=== PATIENT | female | born 1955 | race Caucasian/White ===

== ENCOUNTER → 2016-08-15 | Outpatient (CLI) | payer MEDICAID ==
--- NOTE | 2016-08-16 08:00 | MM ---
Reason for exam: screening (asymptomatic). Last mammogram was performed 1 year and 1 month ago. History: Patient is postmenopausal and history of other cancer. Taking estrogen for 1 year beginning at age 57. Physical Findings: A clinical breast exam by your physician is recommended on an annual basis and results should be correlated with mammographic findings. MG 3D Screening Mammo W/Cad Bilateral CC and MLO view(s) were taken. Prior study comparison: July 06, 2015, bilateral MG 3d screening mammo w/cad. May 03, 2014, bilateral MG diagnostic mammo w CAD CONSUELO. There are scattered fibroglandular densities. No significant changes when compared with prior studies. ASSESSMENT: Negative, BI-RAD 1 RECOMMENDATION: Routine screening mammogram of both breasts in 1 year.
== END | disposition home or self-care (01) ==
LOC: RADMAMWWP 06:52
PROVIDERS: ATTEND Obstetrics & Gynecology
DX: Z12.31 Encounter for screening mammogram for malignant neoplasm of breast (principal)
CPT/HCPCS: 77063; G0202

== ENCOUNTER → 2016-09-04 | Outpatient (CLI) | payer MEDICAID ==
[2016-09-04 07:55] LABS: Alkaline Phosphatase 47 U/L (38-126); Calcium 9.4 mg/dL (8.4-10.2); Non-African American GFR(MDRD) >60 (>60 ml/min/1.73 sqM); Phosphorous 4.2 mg/dL (2.5-4.5)
[2016-09-04 14:41] LABS: Cholesterol 210 mg/dL (<200); HDL Cholesterol 78 mg/dL (40-60); Triglycerides 51 mg/dL (<150)
== END | disposition home or self-care (01) ==
LOC: LABWHC1 07:03
PROVIDERS: ATTEND Internal Medicine Endocrinology, Diabetes & Metabolism
DX: I10 Essential (primary) hypertension (principal); M81.8 Other osteoporosis without current pathological fracture; N95.1 Menopausal and female climacteric states; R79.9 Abnormal finding of blood chemistry, unspecified; Z79.83 Long term (current) use of bisphosphonates; Z79.51 Long term (current) use of inhaled steroids; Z79.52 Long term (current) use of systemic steroids; Z87.310 Personal history of (healed) osteoporosis fracture
CPT/HCPCS: 36415; 80061; 82040; 82306; 82310; 82565; 83735; 83970; 84075; 84100; 84155

== ENCOUNTER → 2016-11-21 | Outpatient (CLI) | payer SELFPAY ==
--- NOTE | 2016-11-21 16:22 | CT ---
EXAMINATION TYPE: CT heart w calcium score DATE OF EXAM: 11/21/2016 3:58 PM COMPARISON: NONE HISTORY: Screening for cardiovascular disorder. 213.9 CT DLP: 44.80 mGycm Automated exposure control for dose reduction was used. CT CALCIUM SCORING Coronary calcium is a marker for plaque (fatty deposits) in a blood vessel or atherosclerosis (harden ing of the arteries). The presence and amount of calcium detected in a coronary artery by the CT sca n, indicates the presence and amount of atherosclerotic plaque. These calcium deposits appear years before the development of heart disease symptoms such as chest pain and shortness of breath. A calcium score is computed for each of the coronary arteries based upon the volume and density of th e calcium deposits. This can be referred to as your calcified plaque burden. It does not correspond directly to the percentage of narrowing in the artery but does correlate with the severity of the un derlying coronary atherosclerosis. PROCEDURE TECHNIQUE - Prospective Gating was used. Slice thickness: 3mm. Density threshold (HU): 130, Pixel threshold: 3, Algorithm: discrete. RESULTS Region: LM Calcium Score (Agatston): 0 Volume (mm3): 0 Mass (g): 0 Region: RCA Calcium Score (Agatston): 0 Volume (mm3): 0 Mass (g): 0 Region: LAD Calcium Score (Agatston): 0 Volume (mm3): 0 Mass (g): 0 Region: CX Calcium Score (Agatston): 0 Volume (mm3): 0 Mass (g): 0 Total: Calcium Score (Agatston): 0 Volume (mm3): 0 Mass (g): 0 TOTAL CALCIUM SCORE: 0 OTHER: The ascending thoracic aorta at the level of the main pulmonary artery measures 3.0 cm. The m ain pulmonary artery the bifurcation is 2.3 cm. There may be some atelectasis or infiltrate at the ca rdiophrenic angles bilaterally within the [id number]. IMPRESSION: Calcium Score: 0 Implication: No identifiable plaque. Risk of Coronary Artery Disease: Very low, generally less than 5%. Atelectasis or infiltrate at the cardiophrenic angles bilateral lungs within the [id number].
== END | disposition home or self-care (01) ==
LOC: RADXRMAIN 10:20
PROVIDERS: ATTEND Radiology Diagnostic Radiology
DX: Z13.6 Encounter for screening for cardiovascular disorders (principal)

== ENCOUNTER → 2017-07-16 | Outpatient (CLI) | payer MEDICAID ==
--- NOTE | 2017-07-16 17:20 | US ---
EXAMINATION TYPE: US renals and bladder DATE OF EXAM: 07/16/2017 COMPARISON: NONE CLINICAL HISTORY: N39.0 Recurrent UTI. Patient states having recurrent UTI's with negative cultures. EXAM MEASUREMENTS: Right Kidney: 11.4 x 5.0 x 4.9 cm Left Kidney: 10.4 x 5.1 x 5.2 cm Right Kidney: Prominent pyramids. Fullness right renal pelvis may be related to extrarenal pelvis. H ydronephrosis not excluded. Left Kidney: Scanned RLD and posterior due to overlying bowel gas. Prominent pyramids and dromedary hump seen. Bladder: distended, wnl as visualized Bilateral Jets seen No nephrolithiasis is seen. No masses are identified. The urinary bladder is anechoic. Bilateral ureteral jets are seen. IMPRESSION: 1. Fullness right renal pelvis may be related to extrarenal pelvis. Hydronephrosis not excluded.
== END ==
LOC: RADUSMAIN 15:02
PROVIDERS: ATTEND Surgery
DX: N39.0 Urinary tract infection, site not specified (principal)
CPT/HCPCS: 76770

== ENCOUNTER → 2017-07-16 | Outpatient (CLI) | payer MEDICAID ==
--- NOTE | 2017-07-16 22:10 | ECHOF ---
Referral Reason:I05.9Mitralvalve disorder MEASUREMENTS -------- HEIGHT: 162.6 cm WEIGHT: 57.6 kg BP: 184/93 RVIDd: 2.4 cm (< 3.3) IVSd: 1.2 cm (0.6 - 1.1) LVIDd: 3.9 cm (3.9 - 5.3) LVPWd: 1.1 cm (0.6 - 1.1) IVSs: 1.4 cm LVIDs: 2.7 cm LVPWs: 1.4 cm LAESV Index (A-L): 32.86 ml/m Ao Diam: 3.0 cm (2.0 - 3.7) AV Cusp: 1.9 cm (1.5 - 2.6) LA Diam: 2.6 cm (2.7 - 3.8) MV EXCURSION: 20.651 mm (> 18.000) MV EF SLOPE: 160 mm/s (70 - 150) EPSS: 0.5 cm MV E Peter: 0.77 m/s MV DecT: 235 ms MV A Peter: 0.93 m/s MV E/A Ratio: 0.83 FINDINGS -------- Sinus rhythm. This was a technically adequate study. The left ventricular size is normal. There is mild concentric left ventricular hypertrophy. Overa ll left ventricular systolic function is normal with, an EF between 55 - 60 %. The right ventricle is normal in size and function. LA is midly dilated 29-33ml/m2. The right atrium is normal in size. Aortic valve is trileaflet and is mildly thickened. There is no evidence of aortic regurgitation. There is no evidence of aortic stenosis. Mitral valve is thickened with myxomatous degeneration. The mitral valve leaflets are mildly thicke donna. There is trace mitral regurgitation. Trace tricuspid regurgitation present. Right ventricular systolic pressure is normal at < 35 mmHg. There is no evidence of pulmonary hypertension. Trace/mild (physiologic) pulmonic regurgitation. The aortic root size is normal. Normal inferior vena cava with normal inspiratory collapse consistent with estimated right atrial pre ssure of 5 mmHg. The pericardium is normal. There is no pericardial effusion. CONCLUSIONS -------- 1. Sinus rhythm. 2. This was a technically adequate study. 3. The left ventricular size is normal. 4. There is mild concentric left ventricular hypertrophy. 5. Overall left ventricular systolic function is normal with, an EF between 55 - 60 %. 6. LA is midly dilated 29-33ml/m2. 7. Aortic valve is trileaflet and is mildly thickened. 8. The mitral valve leaflets are mildly thickened. 9. There is trace mitral regurgitation. 10. Trace tricuspid regurgitation present. 11. Right ventricular systolic pressure is normal at < 35 mmHg. 12. There is no evidence of pulmonary hypertension. 13. Trace/mild (physiologic) pulmonic regurgitation. 14. The aortic root size is normal. 15. There is no pericardial effusion. STATION TENDER: David Bee RDCS
== END | disposition home or self-care (01) ==
LOC: RADECHMAIN 14:54
PROVIDERS: ATTEND Internal Medicine Interventional Cardiology
DX: I08.0 Rheumatic disorders of both mitral and aortic valves (principal)
CPT/HCPCS: 93306

== ENCOUNTER 2017-08-12 14:57 | Day surgery (SDC) | payer MEDICAID ==
[~2017-08-12 14:57] MED LIST: ALBUTEROL NEB (CONC) 2.5 MG/0.5 ML INHALATION ONE; ATROPINE SULFATE 0.4 MG/ML 1 ML VIAL IM ONE; LACTATED RINGERS 1,000 ML IV ONE; LIDOCAINE 2% (PF) 20 MG/ML 2 ML AMP INHALATION ONE
[2017-08-12] MEDS ORDERED: LACTATED RINGERS 1,000 ML IV ONE (15:12)
[2017-08-12 15:28] VITALS: TEMP 97.8
[2017-08-12] MEDS ORDERED: LIDOCAINE 1% 20 ML VIAL (10MG/ML) FOR IV START INTRADERMA ONE (15:29)
[2017-08-12] MEDS ORDERED: ATROPINE SULFATE 0.4 MG/ML 1 ML VIAL IM ONE (16:04)
[2017-08-12] MEDS ORDERED: ALBUTEROL NEBULIZED 2.5 MG/3 ML INHALATION STA (16:18)
[2017-08-12] MEDS ORDERED: MIDAZOLAM 2 MG/2 ML VIAL ONE (16:38)
[2017-08-12] MEDS ORDERED: PROPOFOL 10 MG/ML 20 ML VIAL IV ONE (16:38)
[2017-08-12] MEDS ORDERED: LIDOCAINE 1% INJ 10MG/ML (20 ML MDV) ONE (16:38)
[2017-08-12] MEDS ORDERED: KETAMINE 10 MG/ML 20 ML VIAL ONE (16:38)
[2017-08-12] MEDS ORDERED: LIDOCAINE 2% INJ 20 MG/ML INTRATRACH ONE (16:56)
[2017-08-12 17:29] VITALS: BP 160/90; PULSE 93; RESP 16
--- NOTE | 2017-08-12 17:45 | PCN ---
PROCEDURE NOTE PROCEDURE: Bronchoscopy, airway examination, therapeutic lavage, BAL right middle lobe. PREOPERATIVE DIAGNOSIS: Asthma exacerbation and retained secretions. POSTOPERATIVE DIAGNOSIS: Asthma exacerbation and retained secretions. There was informed consent. There was universal timeout. The INVESTMENT DIRECTOR provided unconscious sedation with general anesthesia. The patient's procedure took place in room #1. The procedure was done by Dr. Sheehan and Dr. Trivedi. PROCEDURE DESCRIPTION: After the patient was adequately sedated and being fully monitored, the bronchoscope was inserted through the right nostril. It passed through the right nasopharynx into the oropharynx. The hypopharynx was identified and topicalized. The hypopharyngeal structures, including anterior commissure, true cords, false cords, arytenoids, piriform sinuses, right and left valleculae and epiglottis, all appeared normal. After topicalization, the bronchoscope was pushed through the glottic opening into the trachea. Trachea was noted to have some secretions distally. The tracheal mucosa was somewhat friable. Trachea lesly was sharp. Right and left mainstem were topicalized. The right upper lobe and its 3 segments, right middle lobe and its 2 segments, the right lower lobe and its 5 segments, the left upper lobe proper and its 2 segments, the lingula and its 2 segments and the left lower lobe and its 4 segments all had similar findings of diffuse airways. I would say it was moderate to severe. There was mucosal friability. There was diffuse erythema and hyperemia. The mucosa bled easily. There were thick secretions noted throughout, particularly in the lower lobes. They were yellow-green in color. They were suctioned with some difficulty. After all the secretions were removed, and after the airways were inspected, the bronchoscope was wedged into the lower lobe. It was hard to get into the middle lobe because of the edema. The washings were primarily from the right middle lobe, right lower lobe area. They were pooled. Roughly 30 mL were collected. Next, the bronchoscope was taken back down over to the left lower lobe and the left lower lobe was flushed thoroughly. The patient tolerated the procedure well, although she did cough quite a bit. We did use topical lidocaine and systemic lidocaine for that. The patient otherwise was stable throughout the procedure. There were no immediate complications. The patient will be recovered. MMODL / IJN: [id number] /
[2017-08-12 19:05] LABS: Appearance,BF Cloudy; Color,BF Red; Nucleated Cells, Body Fluid 250 /uL; RBC, Body Fluid 23625 /uL
[2017-08-12 19:57] LABS: Mononuclear WBC,Body Fluid 44 %; Polynuclear WBC,Body Fluid 56 %; Total Cells Counted,Body Fluid 100
== END 2017-08-12 17:57 | disposition home or self-care (01) ==
LOC: ORWHC2ENDO 14:57
PROVIDERS: ATTEND Internal Medicine Critical Care Medicine
DX: J45.901 Unspecified asthma with (acute) exacerbation (principal); F41.9 Anxiety disorder, unspecified; G47.00 Insomnia, unspecified; L30.9 Dermatitis, unspecified; M81.0 Age-related osteoporosis without current pathological fracture; I10 Essential (primary) hypertension; Z79.3 Long term (current) use of hormonal contraceptives; Z79.51 Long term (current) use of inhaled steroids; Z79.52 Long term (current) use of systemic steroids; Z79.899 Other long term (current) drug therapy; Z91.041 Radiographic dye allergy status
CPT/HCPCS: 94640; 88108; 88305; 89050; 87252; 87070; 87205; 87116; 87102; 87206; 31645; 31624; J2001 ×3; J2250; J0461; J2704; 87077; 87186; 87496; 87498; 87502; 87529; 87634; 87798

== ENCOUNTER → 2017-08-29 | Outpatient (CLI) | payer MEDICAID ==
--- NOTE | 2017-09-03 07:53 | MM ---
Reason for exam: screening (asymptomatic). Last mammogram was performed 1 year ago. History: Patient is postmenopausal and history of other cancer. Taking estrogen for 5 years beginning at age 57. Taking progesterone for 5 years beginning at age 53. Physical Findings: A clinical breast exam by your physician is recommended on an annual basis and results should be correlated with mammographic findings. MG 3D Screening Mammo W/Cad Bilateral CC and MLO view(s) were taken. Prior study comparison: August 15, 2016, bilateral MG 3d screening mammo w/cad. July 06, 2015, bilateral MG 3d screening mammo w/cad. The breast tissue is heterogeneously dense. This may lower the sensitivity of mammography. No suspicious abnormality in the right breast. Anterior depth lateral left breast asymmetry. ASSESSMENT: Incomplete: need additional imaging evaluation, BI-RAD 0 RECOMMENDATION: Special view mammogram of the left breast. (also work up patients left palpable on diagnostic exam) If lesion persists on supplemental views, image directed ultrasound is recommended. [facility] will attempt to contact patient to return for supplemental views and ultrasound if indicated.
== END | disposition home or self-care (01) ==
LOC: RADMAMWWP 13:28
PROVIDERS: ATTEND Obstetrics & Gynecology
DX: Z12.31 Encounter for screening mammogram for malignant neoplasm of breast (principal)
CPT/HCPCS: 77063; 77067

== ENCOUNTER → 2017-09-04 | Outpatient (CLI) | payer MEDICAID ==
--- NOTE | 2017-09-04 11:37 | MM ---
Reason for exam: additional evaluation requested from abnormal screening. Last mammogram was performed less than 1 month ago. History: Patient is postmenopausal and history of other cancer. Taking estrogen for 5 years beginning at age 57. Taking progesterone for 5 years beginning at age 53. Physical Findings: Nurse Summary: 1cm nodule in the left breast (nurse dw). MG 3D Work Up W/Cad LT ML and spot compression CC view(s) were taken of the left breast. Prior study comparison: August 29, 2017, bilateral MG 3d screening mammo w/cad. August 15, 2016, bilateral MG 3d screening mammo w/cad. There are scattered fibroglandular densities. No distinct lesion persists. These results were verbally communicated with the patient and result sheet given to the patient on 09/04/17. ASSESSMENT: Incomplete: need additional imaging evaluation, BI-RAD 0 RECOMMENDATION: Ultrasound of the left breast. (palpable)
--- NOTE | 2017-09-04 11:38 | USB ---
Reason for exam: additional evaluation requested from abnormal screening. History: Patient is postmenopausal and history of other cancer. Taking estrogen for 5 years beginning at age 57. Taking progesterone for 5 years beginning at age 53. US Breast Workup Limited LT Left breast ultrasound demonstrates no cystic or solid lesion seen. These results were verbally communicated with the patient and result sheet given to the patient on 09/04/17. ASSESSMENT: Negative, BI-RAD 1 RECOMMENDATION: Return to routine screening mammogram schedule for both breasts. Manage patient on a clinical basis.
== END | disposition home or self-care (01) ==
LOC: RADMAMWWP 06:54
PROVIDERS: ATTEND Obstetrics & Gynecology
DX: R92.8 Other abnormal and inconclusive findings on diagnostic imaging of breast (principal)
CPT/HCPCS: 77065; 76642; G0279

== ENCOUNTER → 2017-09-09 | Outpatient (CLI) | payer MEDICAID ==
[2017-09-09 10:44] LABS: Basophils % (A) 0 %; Eosinophils % (A) 0 %; HGB 13.7 gm/dL (11.4-16.0); Lymphocytes # (A) 1.3 k/uL (1.0-4.8); Lymphocytes % (A) 12 %; MCH 31.5 pg (25.0-35.0); MCHC 31.7 g/dL (31.0-37.0); MCV 99.3 fL (80.0-100.0); Mean Platelet Volume 6.6; Monocytes # (A) 0.5 k/uL (0-1.0); Monocytes % (A) 5 %; Neutrophils % (A) 81 %; Platelet Count 313 k/uL (150-450); RBC 4.33 m/uL (3.80-5.40); RDW 12.7 % (11.5-15.5); WBC 11.1 k/uL (3.8-10.6)
[2017-09-09 11:01] LABS: Total Eosinophil Count 33 #EOS/uL (150-300)
[2017-09-09 11:07] LABS: Anion Gap 12 mmol/L; Blood Urea Nitrogen 16 mg/dL (7-17); Calcium 9.7 mg/dL (8.4-10.2); Carbon Dioxide 26 mmol/L (22-30); Chloride 102 mmol/L (98-107); Glucose 118 mg/dL (74-99); Phosphorus 3.5 mg/dL (2.5-4.5); Potassium 3.8 mmol/L (3.5-5.1); Sodium 140 mmol/L (137-145)
== END | disposition home or self-care (01) ==
LOC: LABWHC1 10:07
PROVIDERS: ATTEND Internal Medicine Infectious Disease
DX: L97.929 Non-pressure chronic ulcer of unspecified part of left lower leg with unspecified severity (principal); J45.909 Unspecified asthma, uncomplicated
CPT/HCPCS: 36415; 80048; 82533; 83735; 84100; 85008; 85025

== ENCOUNTER → 2017-10-11 | Outpatient (CLI) | payer MEDICAID ==
[2017-10-11 09:28] LABS: Basophils # (A) 0.1 k/uL (0-0.2); Basophils % (A) 1 %; Eosinophils # (A) 0.2 k/uL (0-0.7); Eosinophils % (A) 2 %; HCT 42.3 % (34.0-46.0); HGB 14.3 gm/dL (11.4-16.0); Lymphocytes # (A) 2.1 k/uL (1.0-4.8); Lymphocytes % (A) 26 %; MCH 32.9 pg (25.0-35.0); MCHC 33.8 g/dL (31.0-37.0); MCV 97.3 fL (80.0-100.0); Mean Platelet Volume 7.2; Monocytes # (A) 0.5 k/uL (0-1.0); Monocytes % (A) 6 %; Neutrophils # (A) 5.2 k/uL (1.3-7.7); Neutrophils % (A) 62 %; Platelet Count 351 k/uL (150-450); RBC 4.35 m/uL (3.80-5.40); RDW 13.3 % (11.5-15.5); WBC 8.3 k/uL (3.8-10.6)
[2017-10-11 11:26] LABS: ALT 28 U/L (9-52); AST 20 U/L (14-36); Alkaline Phosphatase 39 U/L (38-126); Anion Gap 9 mmol/L; Blood Urea Nitrogen 14 mg/dL (7-17); Carbon Dioxide 30 mmol/L (22-30); Chloride 102 mmol/L (98-107); Cholesterol 216 mg/dL (<200); Glucose 87 mg/dL (74-99); HDL Cholesterol 81 mg/dL (40-60); LDL Cholesterol,Calculated 122 mg/dL (0-99); Potassium 4.1 mmol/L (3.5-5.1); Sodium 141 mmol/L (137-145); Total Bilirubin 0.4 mg/dL (0.2-1.3); Total Protein 6.8 g/dL (6.3-8.2); Triglycerides 66 mg/dL (<150)
[2017-10-11 11:40] LABS: T4, Free (Free Thyroxine) 1.06 ng/dL (0.78-2.19)
[2017-10-11 20:40] LABS: Hemoglobin A1C 5.3 % (4.0-6.0)
== END | disposition home or self-care (01) ==
LOC: LABWHC1 08:24
PROVIDERS: ATTEND Internal Medicine Critical Care Medicine
DX: I10 Essential (primary) hypertension (principal); J45.909 Unspecified asthma, uncomplicated; E27.40 Unspecified adrenocortical insufficiency
CPT/HCPCS: 36415; 80053; 80061; 82306; 82533; 83036; 84439; 84443; 85025

== ENCOUNTER → 2017-10-29 | Outpatient (CLI) | payer MEDICAID ==
[~2017-10-29] MED LIST changes: -ALBUTEROL NEB (CONC) 2.5 MG/0.5 ML INHALATION ONE; -ATROPINE SULFATE 0.4 MG/ML 1 ML VIAL IM ONE; +COSYNTROPIN 0.25 MG VIAL IM ONE; -LACTATED RINGERS 1,000 ML IV ONE; -LIDOCAINE 2% (PF) 20 MG/ML 2 ML AMP INHALATION ONE
[2017-10-29 08:15] VITALS: BP 138/67; PULSE 81; RESP 16; TEMP 97.7
[2017-10-29 19:13] LABS: Vitamin D 25 Hydroxy 51.8 ng/mL (30.0-100.0)
[2017-10-30 06:11] LABS: ACTH <5.00 pg/mL (0.00-45.99)
== END | disposition home or self-care (01) ==
LOC: PROCWHC3 07:37
PROVIDERS: ATTEND Internal Medicine Endocrinology, Diabetes & Metabolism
DX: E27.3 Drug-induced adrenocortical insufficiency (principal); E55.9 Vitamin D deficiency, unspecified
CPT/HCPCS: 82533; 82024; 82306; 36415; J0834

== ENCOUNTER → 2017-11-10 | Outpatient (CLI) | payer MEDICAID ==
[2017-11-10 11:19] LABS: Parathyroid Hormone Intact 54.2 pg/mL (14.0-72.0)
== END | disposition home or self-care (01) ==
LOC: LABWHC1 07:09
PROVIDERS: ATTEND Internal Medicine Endocrinology, Diabetes & Metabolism
DX: M81.8 Other osteoporosis without current pathological fracture (principal); N95.1 Menopausal and female climacteric states; Z79.51 Long term (current) use of inhaled steroids; Z79.52 Long term (current) use of systemic steroids
CPT/HCPCS: 36415; 82670; 83970

== ENCOUNTER → 2017-12-30 | Outpatient (CLI) | payer MEDICAID | END | disposition home or self-care (01) | LOC: LABWHC1 07:01 | PROVIDERS: ATTEND Internal Medicine Endocrinology, Diabetes & Metabolism | DX: E27.3 Drug-induced adrenocortical insufficiency (principal) | CPT/HCPCS: 36415; 82024 ==

== ENCOUNTER → 2018-01-27 | Outpatient (CLI) | payer MEDICAID ==
--- NOTE | 2018-01-28 17:46 | MR ---
EXAMINATION TYPE: MR foot RT wo con DATE OF EXAM: 01/27/2018 COMPARISON: None available HISTORY: 62-year-old female Right Foot Pain x 2 weeks TECHNIQUE: Multiplanar, multisequence images of the right foot were obtained without IV contrast. FINDINGS: Incidental type I accessory navicular. Small anterior ankle joint effusion. Achilles tendon is smoothly delineated. Origin of the plantar fa scia intact. No abnormal replacement of the normal fat signal in sinus tarsi. Lisfranc ligament appe ars intact. There is hallux valgus deformity with bunion formation and moderate degenerative change at the first MTP joint with subchondral cystic change and marginal spurring. Some additional degenerative change i s noted at the first metatarsal sesamoid joint. Hammertoes are present. Some degenerative dorsal spurring at the talonavicular joint and mild degenerative change scattered t hroughout the midfoot TMT joints as well. There is some focal marrow edema and surrounding soft tissue edema along the proximal aspect of the f ifth metatarsal distal to the level of the fourth-fifth intermetatarsal joint, refer to axial T2 FS i mage 11, coronal T2 FS image 25, and sagittal images 15. No discrete fracture or otherwise any abnormal marrow edema seen. IMPRESSION: 1. Findings suspicious for stress reaction versus small incomplete stress fracture at the base of the fifth metatarsal near the metadiaphyseal junction. 2. 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 3. Hammer toes and additional scattered mild osteoarthritic changes within the midfoot.
== END | disposition home or self-care (01) ==
LOC: RADMRIMAIN 16:42
PROVIDERS: ATTEND Orthopaedic Surgery
DX: M20.11 Hallux valgus (acquired), right foot (principal); M21.611 Bunion of right foot; M19.071 Primary osteoarthritis, right ankle and foot; M20.41 Other hammer toe(s) (acquired), right foot

== ENCOUNTER → 2018-02-05 | Outpatient (CLI) | payer MEDICAID ==
[2018-02-05 15:47] LABS: Albumin 4.4 g/dL (3.5-5.0); Alkaline Phosphatase 34 U/L (38-126); Phosphorus 4.2 mg/dL (2.5-4.5); Total Protein 6.9 g/dL (6.3-8.2)
[2018-02-05 18:50] LABS: Vitamin D 25 Hydroxy 101.4 ng/mL (30.0-100.0)
[2018-02-05 19:07] LABS: Parathyroid Hormone Intact 17.5 pg/mL (14.0-72.0)
== END | disposition home or self-care (01) ==
LOC: LABWHC1 15:08
PROVIDERS: ATTEND Internal Medicine Endocrinology, Diabetes & Metabolism
DX: M81.8 Other osteoporosis without current pathological fracture (principal); E55.9 Vitamin D deficiency, unspecified; Z92.241 Personal history of systemic steroid therapy
CPT/HCPCS: 36415; 82040; 82306; 82310; 82565; 83735; 83970; 84075; 84100; 84155

== ENCOUNTER → 2018-05-06 | Outpatient (CLI) | payer MEDICAID | END | disposition home or self-care (01) | LOC: LABWHC1 07:31 | PROVIDERS: ATTEND Physician Assistant Medical | DX: L20.89 Other atopic dermatitis (principal) | CPT/HCPCS: 36415; 86038 ==

== ENCOUNTER → 2018-07-03 | Outpatient (CLI) | payer MEDICAID | END | disposition home or self-care (01) | LOC: LABWHC1 09:38 | PROVIDERS: ATTEND Internal Medicine Endocrinology, Diabetes & Metabolism | DX: E27.3 Drug-induced adrenocortical insufficiency (principal) | CPT/HCPCS: 36415; 82024; 82533 ==

== ENCOUNTER → 2018-09-11 | Outpatient (CLI) | payer MEDICAID ==
--- NOTE | 2018-09-15 08:51 | MM ---
Reason for exam: screening (asymptomatic). Last mammogram was performed 1 year ago. History: Patient is postmenopausal and has history of other cancer at age 53. Taking estrogen for 5 years beginning at age 57. Taking progesterone for 5 years beginning at age 53. Physical Findings: A clinical breast exam by your physician is recommended on an annual basis and results should be correlated with mammographic findings. MG 3D Screening Mammo W/Cad Bilateral CC and MLO view(s) were taken. Prior study comparison: September 04, 2017, left breast MG 3d work up w/cad LT. August 15, 2016, bilateral MG 3d screening mammo w/cad. July 06, 2015, bilateral MG 3d screening mammo w/cad. No significant changes when compared with prior studies. ASSESSMENT: Benign, BI-RAD 2 RECOMMENDATION: Routine screening mammogram of both breasts in 1 year. Manage patient on a clinical basis.
== END ==
LOC: RADMAMWWP 06:51
PROVIDERS: ATTEND Obstetrics & Gynecology
DX: Z12.31 Encounter for screening mammogram for malignant neoplasm of breast (principal)
CPT/HCPCS: 77063; 77067

== ENCOUNTER → 2018-10-29 | Outpatient (CLI) | payer MEDICAID ==
[2018-10-29 11:47] LABS: Parathyroid Hormone Intact 24.9 pg/mL (14.0-72.0)
[2018-10-29 11:52] LABS: Albumin 4.3 g/dL (3.80-4.90); Albumin/Globulin Ratio 2.05 (1.60-3.17); Anion Gap 6.9 mmol/L (4.00-12.00); Calcium 9.8 mg/dL (8.7-10.3); Carbon Dioxide 29.1 mmol/L (21.6-31.8); Globulin 2.1 g/dL (1.6-3.3); Magnesium 1.9 mg/dL (1.5-2.4); Phosphorus 4.4 mg/dL (2.4-5.1); Potassium 4.2 mmol/L (3.5-5.5); Total Bilirubin 0.5 mg/dL (0.3-1.2); Total Protein 6.4 g/dL (6.2-8.2)
[2018-10-29 11:53] LABS: Vitamin D 25 Hydroxy 73.1 ng/mL (30.0-100.0)
== END ==
LOC: LABWHC1 07:27
PROVIDERS: ATTEND Internal Medicine Endocrinology, Diabetes & Metabolism
DX: E27.3 Drug-induced adrenocortical insufficiency (principal); M81.8 Other osteoporosis without current pathological fracture; N95.1 Menopausal and female climacteric states; Z79.83 Long term (current) use of bisphosphonates; Z71.9 Counseling, unspecified; Z92.241 Personal history of systemic steroid therapy
CPT/HCPCS: 36415; 80053; 82024; 82306; 82533; 83735; 83970; 84100

== ENCOUNTER → 2018-10-30 | Outpatient (CLI) | payer MEDICAID | END | disposition home or self-care (01) | LOC: LABWHC1 16:13 | PROVIDERS: ATTEND Internal Medicine Endocrinology, Diabetes & Metabolism | DX: Z53.9 Procedure and treatment not carried out, unspecified reason (principal) ==

== ENCOUNTER → 2018-11-04 | Outpatient (CLI) | payer MEDICAID | LOC: LABWHC1 14:27 | PROVIDERS: ATTEND Internal Medicine Endocrinology, Diabetes & Metabolism | DX: E27.3 Drug-induced adrenocortical insufficiency (principal) | CPT/HCPCS: 36415; 82024 ==

== ENCOUNTER → 2018-11-20 | Outpatient (CLI) | payer MEDICAID | LOC: LABWHC1 06:39 | PROVIDERS: ATTEND Internal Medicine Endocrinology, Diabetes & Metabolism | DX: E27.3 Drug-induced adrenocortical insufficiency (principal); E55.9 Vitamin D deficiency, unspecified | CPT/HCPCS: 36415; 82533 ==

== ENCOUNTER → 2019-04-01 | Outpatient (CLI) | payer MEDICAID, OTHER ==
[2019-04-01 12:03] LABS: African American GFR (CKD) 108.4 (60.0-200.0); Albumin 4.3 g/dL (3.80-4.90); Calcium 9.9 mg/dL (8.7-10.3); Magnesium 1.8 mg/dL (1.5-2.4); Total Protein 6.5 g/dL (6.2-8.2)
[2019-04-01 12:10] LABS: Vitamin D 25 Hydroxy 43.4 ng/mL (30.0-100.0)
== END | disposition home or self-care (01) ==
LOC: LABWHC1 07:14
PROVIDERS: ATTEND Internal Medicine Endocrinology, Diabetes & Metabolism
DX: E27.3 Drug-induced adrenocortical insufficiency (principal); E55.9 Vitamin D deficiency, unspecified
CPT/HCPCS: 36415; 82040; 82306; 82310; 82533; 82565; 82670; 83735; 83970; 84075; 84100; 84155

== ENCOUNTER → 2019-05-19 | Outpatient (CLI) | payer MEDICAID, OTHER ==
[2019-05-19 15:14] LABS: Basophils # (A) 0.1 k/uL (0-0.2); Basophils % (A) 1 %; Eosinophils # (A) 0.2 k/uL (0-0.7); Eosinophils % (A) 2 %; HCT 39.6 % (34.0-46.0); HGB 13.1 gm/dL (11.4-16.0); Lymphocytes # (A) 1.2 k/uL (1.0-4.8); Lymphocytes % (A) 14 %; MCH 33.2 pg (25.0-35.0); MCHC 33.1 g/dL (31.0-37.0); MCV 100.1 fL (80.0-100.0); Mean Platelet Volume 6.6; Monocytes # (A) 0.5 k/uL (0-1.0); Monocytes % (A) 6 %; Neutrophils # (A) 6.1 k/uL (1.3-7.7); Neutrophils % (A) 74 %; Platelet Count 334 k/uL (150-450); RBC 3.96 m/uL (3.80-5.40); RDW 12.1 % (11.5-15.5); WBC 8.2 k/uL (3.8-10.6)
[2019-05-19 15:57] LABS: Total Eosinophil Count 156 #EOS/uL (150-300)
== END ==
LOC: LABWHC1 14:07
PROVIDERS: ATTEND Internal Medicine Critical Care Medicine
DX: J45.909 Unspecified asthma, uncomplicated (principal)
CPT/HCPCS: 36415; 82785; 85008; 85025

== ENCOUNTER 2019-11-03 16:00 | Emergency (ER) | payer MEDICAID, OTHER ==
[2019-11-03] MEDS ORDERED: SODIUM CHLORIDE 0.9% 500 ML 500 ML IV ONE (16:01)
[2019-11-03 16:07] LABS: Glucose,Whole Blood 127 mg/dL (75-99)
[2019-11-03 16:08] VITALS: RESP 18; TEMP 97.5
[2019-11-03 16:17] LABS: HCT 41.9 % (34.0-46.0); HGB 13.8 gm/dL (11.4-16.0); MCH 31.7 pg (25.0-35.0); MCHC 32.8 g/dL (31.0-37.0); MCV 96.6 fL (80.0-100.0); Mean Platelet Volume 8.5; Platelet Count 315 k/uL (150-450); RBC 4.34 m/uL (3.80-5.40); RDW 11.7 % (11.5-15.5); WBC 10.6 k/uL (3.8-10.6)
[2019-11-03] MEDS ORDERED: ONDANSETRON 4 MG/2 ML VIAL IVP STA (16:26)
[2019-11-03 16:28] LABS: ALT 21 U/L (4-34); AST 30 U/L (14-36); Acetaminophen <10.0 ug/mL; African American GFR (CKD) >90 (>60 ml/min/1.73 sqM); Albumin 4.6 g/dL (3.5-5.0); Alkaline Phosphatase 52 U/L (38-126); Anion Gap 15 mmol/L; Blood Urea Nitrogen 12 mg/dL (7-17); Calcium 9.4 mg/dL (8.4-10.2); Carbon Dioxide 19 mmol/L (22-30); Chloride 104 mmol/L (98-107); Creatine Kinase 108 U/L (30-135); Glucose 128 mg/dL (74-99); Magnesium 2.1 mg/dL (1.6-2.3); Non-African American GFR(CKD) >90 (>60 ml/min/1.73 sqM); Potassium 3.3 mmol/L (3.5-5.1); Sodium 138 mmol/L (137-145); Total Bilirubin 0.3 mg/dL (0.2-1.3); Total Protein 7.5 g/dL (6.3-8.2)
[2019-11-03 16:31] LABS: Alcohol 288 mg/dL
--- NOTE | 2019-11-03 16:35 | CT ---
EXAMINATION TYPE: CT brain wo con DATE OF EXAM: 11/03/2019 COMPARISON: 12/18/2010 HISTORY: 64-year-old female confusion, altered mental status TECHNIQUE: Examination was done in axial plane without intravenous contrast. Coronal and sagittal r econstructions performed. CT DLP: 1125.4 mGycm Automated exposure control for dose reduction was used. FINDINGS: There is no evidence of acute intracranial hemorrhage, acute ischemic changes, mass, mass-effect, or extra-axial fluid collection. There is no effacement of cerebral sulci or basal subarachnoid cister ns. There is no hydrocephalus. There is no midline shift. Nielsen-white matter distinction is preserv ed. Mild periventricular white matter hypodensities likely relate to changes of chronic small vessel isch emic disease. Very mild bifrontal atrophy, age related change. Paranasal sinuses and mastoid air cells are well pneumatized. Orbits and globes are intact. Leftward nasal septal deviation. IMPRESSION: Mild periventricular changes of chronic small vessel ischemic disease. No acute intracranial abnormal ity seen. If symptoms warrant, follow-up MRI can be considered.
[2019-11-03 16:41] LABS: INR 0.9 (<1.2); Prothrombin Time 9.6 sec (9.0-12.0)
--- NOTE | 2019-11-03 16:46 | XR ---
EXAMINATION TYPE: XR chest 1V portable DATE OF EXAM: 11/03/2019 Comparison: 06/06/2016 Clinical History: 64-year-old female confusion, altered mental status Findings: Heart upper limits of normal in size. Aorta and pulmonary vasculature within normal limits. Mild inte rstitial prominence is unchanged. There is new focal patchy opacity along the left heart margin withi n the inferior lingula. No pleural effusion. Impression: Some focal inferior lingular opacity could represent atelectasis or an early developing pneumonia.
[2019-11-03] MEDS ORDERED: SODIUM CHLORIDE 0.9% 1,000 ML IV ONE (16:58)
--- NOTE | 2019-11-03 16:59 | ED ---
General Adult HPI - General Chief complaint: Altered Mental Status Stated complaint: Altered Mental Time Seen by Provider: 11/03/19 16:01 Source: family, EMS, RN notes reviewed, old records reviewed Mode of arrival: EMS Limitations: altered mental status, physical limitation - History of Present Illness Initial comments: 64-year-old female presenting for evaluation of altered mental status. Patient had been found in her yard, she had lost consciousness. She had had one episode of vomiting and was confused. EMS transported as priority 1. There was a smell of alcohol on the patient. Patient was unable to give any history at the time of arrival. Family at bedside stating there was no concern for illicit drug use. No history of TIA or CVA. Patient had episode of vomiting and urinary incontinence. History is that the patient is normally healthy and was in her usual state of health just prior to this episode. - Related Data Home Medications Medication Instructions Recorded Confirmed Montelukast [Singulair] 10 mg PO HS 01/19/14 11/03/19 Losartan/Hydrochlorothiazide 1 tab PO DAILY 10/29/17 11/03/19 [Losartan-Hctz 100-25 mg Tab] Omalizumab [Xolair] 300 mg SQ Q30D 07/05/19 11/03/19 Albuterol Nebulized [Ventolin 2.5 mg INHALATION RT-QID PRN 11/03/19 11/03/19 Nebulized] Budesonide/Formoterol Fumarate 2 puff INHALATION RT-BID 11/03/19 11/03/19 [Symbicort 160-4.5 Mcg Inhaler] Clobetasol Propionate [Temovate 1 applic TOPICAL BID 11/03/19 11/03/19 0.05% Oint] Estradiol/Norethindrone Acet 1 tab PO DAILY 11/03/19 11/03/19 [Lopreeza 1 mg-0.5 mg Tablet] Allergies Allergy/AdvReac Type Severity Reaction Status Date / Time iodine Allergy Swelling Verified 11/03/19 16:01 Review of Systems ROS Statement: Those systems with pertinent positive or pertinent negative responses have been documented in the HPI. ROS Other: All systems not noted in ROS Statement are negative. Past Medical History Past Medical History: Asthma, Cancer, Eye Disorder, Hypertension, Skin Disorder Additional Past Medical History / Comment(s): HEART MURMUR. RETINAL DISORDER. ECZEMA. SKI History of Any Multi-Drug Resistant Organisms: None Reported Additional Past Surgical History / Comment(s): BILATERAL CATARACTS. Colonoscopies,bronchoscopy. Left metatarsal stress fracture. Past Anesthesia/Blood Transfusion Reactions: No Reported Reaction, Motion S ickness Past Psychological History: No Psychological Hx Reported Smoking Status: Former smoker Past Alcohol Use History: Occasional Past Drug Use History: None Reported - Past Family History Father Family Medical History: Cancer Mother Family Medical History: Cancer General Exam Limitations: altered mental status, physical limitation General appearance: appears intoxicated, lethargic Head exam: Present: atraumatic, normocephalic Eye exam: Present: normal appearance, PERRL ENT exam: Present: mucous membranes dry Neck exam: Present: normal inspection. Absent: tenderness, meningismus Respiratory exam: Present: normal lung sounds bilaterally. Absent: respiratory distress, wheezes Cardiovascular Exam: Present: regular rate, normal rhythm GI/Abdominal exam: Present: soft. Absent: distended, tenderness, guarding, rebound Extremities exam: Present: normal inspection, normal capillary refill. Absent: pedal edema Neurological exam: Present: alert. Absent: motor sensory deficit (No focal findings, moving all extremities symmetrically) Psychiatric exam: Present: normal affect, normal mood Skin exam: Present: warm, dry, intact. Absent: cyanosis, diaphoretic Course Vital Signs 11/03/19 11/03/19 11/03/19 16:01 16:16 16:31 Temperature 97.5 F L Pulse Rate 76 66 79 Respiratory 18 18 18 Rate Blood Pressure 105/64 105/66 111/53 O2 Sat by Pulse 93 L 97 95 Oximetry 11/03/19 11/03/19 17:15 19:21 Temperature 97.5 F L Pulse Rate 60 76 Respiratory 18 18 Rate Blood Pressure 95/49 105/90 O2 Sat by Pulse 95 96 Oximetry EKG Findings - EKG Comments: EKG Findings:: EKG: Normal sinus rhythm, left atrial enlargement, incomplete right bundle, rate of 72, WV interval 142, QRS duration 106, QTC [address] segment elevation Medical Decision Making - Medical Decision Making 64-year-old female presenting with acute confusion and altered mental status. EMS reports a smell of alcohol. I did initiate workup in the emergency department which includes head CT which was negative for intracranial hemorrhage or mass effect, showing some chronic ischemic changes. She has chest x-ray which is negative for any acute cardiopulmonary disease. CBC is normal. Venous blood gas shows normal pH is 7.39. Mild lactic acidosis of 3.0. Electrolytes showing a potassium 3.3 which is replaced and a bicarb of 19 which is on the low side. Alcohol level significantly elevated 288. Patient observed in the emergency department with return to normal mental status, she does admit to drinking beer. She denies any other complaints time my reevaluation. She is able to eat and drink in the emergency department. She is ambulatory. She is not driving and has a ride. - Lab Data Result diagrams: 11/03/19 16:05 11/03/19 16:05 Lab Results 11/03/19 11/03/19 11/03/19 Range/Units 16:05 16:05 16:05 WBC 10.6 (3.8-10.6) k/uL RBC 4.34 (3.80-5.40) m/uL Hgb 13.8 (11.4-16.0) gm/dL Hct 41.9 (34.0-46.0) % MCV 96.6 (80.0-100.0) fL MCH 31.7 (25.0-35.0) pg MCHC 32.8 (31.0-37.0) g/dL RDW 11.7 (11.5-15.5) % Plt Count 315 (150-450) k/uL Neutrophils % (Manual) 55 % Lymphocytes % (Manual) 41 % Monocytes % (Manual) 3 % Basophils % (Manual) 1 % Neutrophils # (Manual) 5.83 (1.3-7.7) k/uL Lymphocytes # (Manual) 4.35 (1.0-4.8) k/uL Monocytes # (Manual) 0.32 (0-1.0) k/uL Basophils # (Manual) 0.11 (0-0.2) k/uL Nucleated RBCs 0 (0-0) /100 WBC Manual Slide Review Performed PT 9.6 (9.0-12.0) sec INR 0.9 (<1.2) APTT 18.0 L (22.0-30.0) sec VBG pH (7.31-7.41) VBG pCO2 (37-51) mmHg VBG HCO3 (24-28) mmol/L Sodium (137-145) mmol/L Potassium (3.5-5.1) mmol/L Chloride (98-107) mmol/L Carbon Dioxide (22-30) mmol/L Anion Gap mmol/L BUN (7-17) mg/dL Creatinine (0.52-1.04) mg/dL Est GFR (CKD-EPI)AfAm (>60 ml/min/1.73 sqM) Est GFR (CKD-EPI)NonAf (>60 ml/min/1.73 sqM) Glucose (74-99) mg/dL POC Glucose (mg/dL) 127 H (75-99) mg/dL POC Glu [employer] ID Maryan Davidson Lactic Ac Sepsis Rflx Plasma Lactic Acid Scot (0.7-2.0) mmol/L Calcium (8.4-10.2) mg/dL Magnesium (1.6-2.3) mg/dL Total Bilirubin (0.2-1.3) mg/dL AST (14-36) U/L ALT (4-34) U/L Alkaline Phosphatase (38-126) U/L Creatine Kinase (30-135) U/L Troponin I (0.000-0.034) ng/mL Total Protein (6.3-8.2) g/dL Albumin (3.5-5.0) g/dL Urine Color Urine Appearance (Clear) Urine pH (5.0-8.0) Ur Specific [place] (1.001-1.035) Urine Protein (Negative) Urine Glucose (UA) (Negative) Urine Ketones (Negative) Urine Blood (Negative) Urine Nitrite (Negative) Urine Bilirubin (Negative) Urine Urobilinogen (<2.0) mg/dL Ur Leukocyte Esterase (Negative) Urine Opiates Screen (NotDetected) Ur Oxycodone Screen (NotDetected) Urine Methadone Screen (NotDetected) Ur Propoxyphene Screen (NotDetected) Acetaminophen ug/mL Ur Barbiturates Screen (NotDetected) U Tricyclic Antidepress (NotDetected) Ur Phencyclidine Scrn (NotDetected) Ur Amphetamines Screen (NotDetected) U Methamphetamines Scrn (NotDetected) U Benzodiazepines Scrn (NotDetected) Urine Cocaine Screen (NotDetected) U Marijuana (THC) Screen (NotDetected) Serum Alcohol mg/dL 11/03/19 11/03/19 11/03/19 Range/Units 16:05 16:05 16:05 WBC (3.8-10.6) k/uL RBC (3.80-5.40) m/uL Hgb (11.4-16.0) gm/dL Hct (34.0-46.0) % MCV (80.0-100.0) fL MCH (25.0-35.0) pg MCHC (31.0-37.0) g/dL RDW (11.5-15.5) % Plt Count (150-450) k/uL Neutrophils % (Manual) % Lymphocytes % (Manual) % Monocytes % (Manual) % Basophils % (Manual) % Neutrophils # (Manual) (1.3-7.7) k/uL Lymphocytes # (Manual) (1.0-4.8) k/uL Monocytes # (Manual) (0-1.0) k/uL Basophils # (Manual) (0-0.2) k/uL Nucleated RBCs (0-0) /100 WBC Manual Slide Review PT (9.0-12.0) sec INR (<1.2) APTT (22.0-30.0) sec VBG pH (7.31-7.41) VBG pCO2 (37-51) mmHg VBG HCO3 (24-28) mmol/L Sodium 138 (137-145) mmol/L Potassium 3.3 L (3.5-5.1) mmol/L Chloride 104 (98-107) mmol/L Carbon Dioxide 19 L (22-30) mmol/L Anion Gap 15 mmol/L BUN 12 (7-17) mg/dL Creatinine 0.72 (0.52-1.04) mg/dL Est GFR (CKD-EPI)AfAm >90 (>60 ml/min/1.73 sqM) Est GFR (CKD-EPI)NonAf >90 (>60 ml/min/1.73 sqM) Glucose 128 H (74-99) mg/dL POC Glucose (mg/dL) (75-99) mg/dL POC Glu [employer] ID Lactic Ac Sepsis Rflx Plasma Lactic Acid Scot 3.0 H* (0.7-2.0) mmol/L Calcium 9.4 (8.4-10.2) mg/dL Magnesium 2.1 (1.6-2.3) mg/dL Total Bilirubin 0.3 (0.2-1.3) mg/dL AST 30 (14-36) U/L ALT 21 (4-34) U/L Alkaline Phosphatase 52 (38-126) U/L Creatine Kinase 108 (30-135) U/L Troponin I <0.012 (0.000-0.034) ng/mL Total Protein 7.5 (6.3-8.2) g/dL Albumin 4.6 (3.5-5.0) g/dL Urine Color Urine Appearance (Clear) Urine pH (5.0-8.0) Ur Specific [place] (1.001-1.035) Urine Protein (Negative) Urine Glucose (UA) (Negative) Urine Ketones (Negative) Urine Blood (Negative) Urine Nitrite (Negative) Urine Bilirubin (Negative) Urine Urobilinogen (<2.0) mg/dL Ur Leukocyte Esterase (Negative) Urine Opiates Screen (NotDetected) Ur Oxycodone Screen (NotDetected) Urine Methadone Screen (NotDetected) Ur Propoxyphene Screen (NotDetected) Acetaminophen <10.0 ug/mL Ur Barbiturates Screen (NotDetected) U Tricyclic Antidepress (NotDetected) Ur Phencyclidine Scrn (NotDetected) Ur Amphetamines Screen (NotDetected) U Methamphetamines Scrn (NotDetected) U Benzodiazepines Scrn (NotDetected) Urine Cocaine Screen (NotDetected) U Marijuana (THC) Screen (NotDetected) Serum Alcohol 288 H* mg/dL 11/03/19 11/03/19 11/03/19 Range/Units 16:20 16:31 16:38 WBC (3.8-10.6) k/uL RBC (3.80-5.40) m/uL Hgb (11.4-16.0) gm/dL Hct (34.0-46.0) % MCV (80.0-100.0) fL MCH (25.0-35.0) pg MCHC (31.0-37.0) g/dL RDW (11.5-15.5) % Plt Count (150-450) k/uL Neutrophils % (Manual) % Lymphocytes % (Manual) % Monocytes % (Manual) % Basophils % (Manual) % Neutrophils # (Manual) (1.3-7.7) k/uL Lymphocytes # (Manual) (1.0-4.8) k/uL Monocytes # (Manual) (0-1.0) k/uL Basophils # (Manual) (0-0.2) k/uL Nucleated RBCs (0-0) /100 WBC Manual Slide Review PT (9.0-12.0) sec INR (<1.2) APTT (22.0-30.0) sec VBG pH 7.39 (7.31-7.41) VBG pCO2 34 L (37-51) mmHg VBG HCO3 20 L (24-28) mmol/L Sodium (137-145) mmol/L Potassium (3.5-5.1) mmol/L Chloride (98-107) mmol/L Carbon Dioxide (22-30) mmol/L Anion Gap mmol/L BUN (7-17) mg/dL Creatinine (0.52-1.04) mg/dL Est GFR (CKD-EPI)AfAm (>60 ml/min/1.73 sqM) Est GFR (CKD-EPI)NonAf (>60 ml/min/1.73 sqM) Glucose (74-99) mg/dL POC Glucose (mg/dL) (75-99) mg/dL POC Glu [employer] ID Lactic Ac Sepsis Rflx Y Plasma Lactic Acid Scot (0.7-2.0) mmol/L Calcium (8.4-10.2) mg/dL Magnesium (1.6-2.3) mg/dL Total Bilirubin (0.2-1.3) mg/dL AST (14-36) U/L ALT (4-34) U/L Alkaline Phosphatase (38-126) U/L Creatine Kinase (30-135) U/L Troponin I (0.000-0.034) ng/mL Total Protein (6.3-8.2) g/dL Albumin (3.5-5.0) g/dL Urine Color Light Yellow Urine Appearance Clear (Clear) Urine pH 6.0 (5.0-8.0) Ur Specific [place] 1.004 (1.001-1.035) Urine Protein Negative (Negative) Urine Glucose (UA) Negative (Negative) Urine Ketones Negative (Negative) Urine Blood Negative (Negative) Urine Nitrite Negative (Negative) Urine Bilirubin Negative (Negative) Urine Urobilinogen <2.0 (<2.0) mg/dL Ur Leukocyte Esterase Negative (Negative) Urine Opiates Screen Not Detected (NotDetected) Ur Oxycodone Screen Not Detected (NotDetected) Urine Methadone Screen Not Detected (NotDetected) Ur Propoxyphene Screen Not Detected (NotDetected) Acetaminophen ug/mL Ur Barbiturates Screen Not Detected (NotDetected) U Tricyclic Antidepress Not Detected (NotDetected) Ur Phencyclidine Scrn Not Detected (NotDetected) Ur Amphetamines Screen Not Detected (NotDetected) U Methamphetamines Scrn Not Detected (NotDetected) U Benzodiazepines Scrn Not Detected (NotDetected) Urine Cocaine Screen Not Detected (NotDetected) U Marijuana (THC) Screen Not Detected (NotDetected) Serum Alcohol mg/dL Disposition Clinical Impression: Alcoholic intoxication Disposition: HOME SELF-CARE Condition: Good Instructions (If sedation given, give patient instructions): Altered Mental Status (ED), Alcohol Intoxication (ED) Is patient prescribed a controlled substance at d/c from ED?: No Referrals: Facundo Keane MD [Primary Care Provider] - 1-2 days Time of Disposition: 19:50
[2019-11-03 17:00] LABS: Appearance,Urine Clear (Clear); Bilirubin,Urine Negative (Negative); Blood,Urine Negative (Negative); Color,Urine Light Yellow; Glucose,Urine (UA) Negative (Negative); Ketones,Urine Negative (Negative); Leukocyte Esterase,Urine Negative (Negative); Nitrite,Urine Negative (Negative); Protein,Urine Negative (Negative); Specific Gravity,Urine 1.004 (1.001-1.035); Urobilinogen,Urine <2.0 mg/dL (<2.0)
[2019-11-03 17:01] LABS: VBG PH 7.39 (7.31-7.41)
[2019-11-03 17:09] LABS: Amphetamine Screen,Urine Not Detected (NotDetected); Barbiturate Screen,Urine Not Detected (NotDetected); Benzodiazepines Screen,Urine Not Detected (NotDetected); Cocaine Screen,Urine Not Detected (NotDetected); Methadone Screen, Urine Not Detected (NotDetected); Opiate Screen,Urine Not Detected (NotDetected); Oxycodone Screen, Urine Not Detected (NotDetected); Phencyclidine Screen,Urine Not Detected (NotDetected); Tricyclic Antidepressant,Urine Not Detected (NotDetected); Urn Cannabinoid Scrn Not Detected (NotDetected)
[2019-11-03 17:17] LABS: Basophils # (M) 0.11 k/uL (0-0.2); Lymphocytes # (M) 4.35 k/uL (1.0-4.8); Monocytes # (M) 0.32 k/uL (0-1.0); Neutrophils # (M) 5.83 k/uL (1.3-7.7); Neutrophils % (M) 55 %; Nucleated Red Blood Cells 0 /100 WBC (0-0); Total Cells Counted 100
[2019-11-03] MEDS: POTASSIUM CHLORIDE 10 MEQ in WATER FOR INJECTION 1 100ML.BAG IVPB SCH ×2 (17:17→19:29)
[2019-11-03 19:24] VITALS: BP 105/90; PULSE 76
== END 2019-11-03 20:07 | disposition home or self-care (01) ==
LOC: EC 16:00
DX: F10.129 Alcohol abuse with intoxication, unspecified (principal); E87.2 Acidosis; J45.909 Unspecified asthma, uncomplicated; I10 Essential (primary) hypertension; Z79.899 Other long term (current) drug therapy; Z79.51 Long term (current) use of inhaled steroids; Z91.048 Other nonmedicinal substance allergy status; Z87.891 Personal history of nicotine dependence
CPT/HCPCS: 99285; 96374; 96361 ×2; 36415; 93005; 80053; 82550; 82803; 83605; 83735; 84484; 85025; 85610; 85730; 81003; 80306; 80329; 80320; 71045; 70450; J2405; J3480

== ENCOUNTER → 2019-12-22 | Outpatient (CLI) | payer MEDICAID, OTHER ==
--- NOTE | 2019-12-23 10:06 | MM ---
Reason for exam: screening (asymptomatic). Last mammogram was performed 1 year and 3 months ago. History: Patient is postmenopausal and has history of other cancer at age 53. Taking estrogen for 5 years beginning at age 57. Taking progesterone for 5 years beginning at age 53. Physical Findings: A clinical breast exam by your physician is recommended on an annual basis and results should be correlated with mammographic findings. MG 3D Screening Mammo W/Cad Bilateral CC and MLO view(s) were taken. Prior study comparison: September 11, 2018, bilateral MG 3d screening mammo w/cad. September 04, 2017, left breast MG 3d work up w/cad LT. The breast tissue is heterogeneously dense. This may lower the sensitivity of mammography. There are benign appearing vascular calcifications bilaterally. There is chronic nodularity in the left breast. There is no discrete abnormality. ASSESSMENT: Benign, BI-RAD 2 RECOMMENDATION: Routine screening mammogram of both breasts in 1 year.
== END | disposition home or self-care (01) ==
LOC: RADMAMWWP 12:40
PROVIDERS: ATTEND Obstetrics & Gynecology
DX: Z12.31 Encounter for screening mammogram for malignant neoplasm of breast (principal)
CPT/HCPCS: 77063; 77067

== ENCOUNTER → 2020-03-01 | Outpatient (CLI) | payer MEDICAID, OTHER ==
[2020-03-01 16:51] LABS: African American GFR (CKD) 107.6 (60.0-200.0); Albumin 4.1 g/dL (3.80-4.90); Calcium 9.8 mg/dL (8.7-10.3); Magnesium 1.8 mg/dL (1.5-2.4); Non-African American GFR(CKD) 92.9 (60.0-200.0); Phosphorus 4.3 mg/dL (2.4-5.1); Total Protein 6.1 g/dL (6.2-8.2)
[2020-03-01 17:08] LABS: Estradiol 17.2 pg/mL
== END | disposition home or self-care (01) ==
LOC: LABWHC1 09:00
PROVIDERS: ATTEND Internal Medicine Endocrinology, Diabetes & Metabolism
DX: E27.3 Drug-induced adrenocortical insufficiency (principal); M81.8 Other osteoporosis without current pathological fracture; N95.1 Menopausal and female climacteric states; Z92.240 Personal history of inhaled steroid therapy
CPT/HCPCS: 36415; 82024; 82040; 82306; 82310; 82533; 82565; 82670; 83735; 83970; 84075; 84100; 84155

== ENCOUNTER → 2020-03-23 | Outpatient (CLI) | payer MEDICAID, OTHER | END | disposition home or self-care (01) | LOC: LABWHC1 07:06 | PROVIDERS: ATTEND Internal Medicine Endocrinology, Diabetes & Metabolism | DX: E27.3 Drug-induced adrenocortical insufficiency (principal) | CPT/HCPCS: 36415; 82533 ==

== ENCOUNTER 2022-06-27 09:12 | Day surgery (SDC) | payer MEDICARE ==
[2022-06-25 08:40] VITALS: BMI 21.9
--- NOTE | 2022-06-26 15:10 | P.HPOB ---
History of Present Illness H&P Date: 06/26/22 Chief Complaint: postmenopausal bleeding 67 year old with presents for D&C hysteroscopy for postmenopausal bleeding and thickened endometrium on US. Attempted EMB in office but was not sufficient for diagnosis. Review of Systems All systems: negative Constitutional: Denies chills, Denies fever Eyes: denies blurred vision, denies pain Ears, nose, mouth and throat: Denies headache, Denies sore throat Cardiovascular: Denies chest pain, Denies shortness of breath Respiratory: Denies cough Gastrointestinal: Denies abdominal pain, Denies diarrhea, Denies nausea, Denies vomiting Genitourinary: Denies dysuria, Denies hematuria Musculoskeletal: Denies myalgias Integumentary: Denies pruritus, Denies rash Neurological: Denies numbness, Denies weakness Psychiatric: Denies anxiety, Denies depression Endocrine: Denies fatigue, Denies weight change Past Medical History Past Medical History: Asthma, Cancer, Eye Disorder, Hypertension, Pneumonia, Skin Disorder Additional Past Medical History / Comment(s): Steroids May 2022,post menopausal bleeding thickening of uternine lining, Pneumonia in Feb 2022,HEART MURMUR. RETINAL DISORDER. ECZEMA. SKIN CA, lyn wrist fx, spinal(L1-L3)compression fx,Left metatarsal stress fracture. History of Any Multi-Drug Resistant Organisms: None Reported Additional Past Surgical History / Comment(s): BILATERAL CATARACTS. Colonoscopies,bronchoscopy. Past Anesthesia/Blood Transfusion Reactions: No Reported Reaction, Motion Sickness Smoking Status: Former smoker - Past Family History Father Family Medical History: Cancer Additional Family Medical History / Comment(s): prostate,chest wall melanoma,lung Mother Family Medical History: Cancer Additional Family Medical History / Comment(s): cervical Medications and Allergies Home Medications Medication Instructions Recorded Confirmed Type Montelukast [Singulair] 10 mg PO HS 01/19/14 06/25/22 History Losartan/Hydrochlorothiazide 1 tab PO QAM 10/29/17 06/25/22 History [Losartan-Hctz 100-25 mg Tab] Omalizumab [Xolair] 300 mg SQ Q30D 07/05/19 06/25/22 History Budesonide/Formoterol Fumarate 2 puff INHALATION RT-BID 11/03/19 06/25/22 History [Symbicort 160-4.5 Mcg Inhaler] Albuterol Inhaler [Ventolin Hfa 1 - 2 puff INHALATION Q6H PRN 06/25/22 06/25/22 History Inhaler] Citracal [place]it 1 dose PO DAILY 06/25/22 06/25/22 History Estradiol/Progesterone [Bijuva 1 1 tab PO HS 06/25/22 06/25/22 History mg-100 mg Capsule] Multivitamins, Thera [Multivitamin 1 tab PO DAILY 06/25/22 06/25/22 History (formulary)] Rosuvastatin [Crestor] 10 mg PO DAILY 06/25/22 06/25/22 History Allergies Allergy/AdvReac Type Severity Reaction Status Date / Time iodine Allergy Swelling Verified 06/25/22 08:27 Exam Osteopathic Statement: *. No significant issues noted on an osteopathic structural exam other than those noted in the History and Physical/Consult. HEart: RRR Lungs: CTAB Abdomen: soft, nontender Extremeties: neg danette's Assessment and Plan (1) Postmenopausal bleeding Status: Acute Code(s): N95.0 - POSTMENOPAUSAL BLEEDING SNOMED Code(s): 47694726 Plan: 1. D&C hysteroscopy
[~2022-06-27 09:12] MED LIST changes: -COSYNTROPIN 0.25 MG VIAL IM ONE; +Pre Op ABX Message 1 EACH MISC MISCELLANE ONE
[2022-06-27] MEDS ORDERED: LIDOCAINE 1% (10MG/ML) FOR IV START INTRADERMA PRN (09:26)
[2022-06-27] MEDS ORDERED: DEXAMETHASONE SOD PHOSPHATE 4 MG/ML 1 ML VIAL IV ONE (09:26)
[2022-06-27] MEDS ORDERED: MIDAZOLAM 2 MG/2 ML VIAL IV PRN (09:26)
[2022-06-27] MEDS ORDERED: LACTATED RINGERS 1,000 ML IV SCH (09:26)
[2022-06-27] MEDS ORDERED: ONDANSETRON 4 MG/2 ML VIAL IVP ONE (09:26)
[2022-06-27] MEDS ORDERED: HYDROmorphone 0.5 MG/0.5 ML SYRINGE IVP PRN (09:26)
[2022-06-27] MEDS ORDERED: LIDOCAINE 2% INJ 20 MG/ML (2 ML VIAL) ONE (11:00)
[2022-06-27] MEDS ORDERED: fentaNYL (PF) 50 MCG/ML 2 ML AMP ONE (11:00)
[2022-06-27] MEDS ORDERED: MIDAZOLAM 2 MG/2 ML VIAL ONE (11:00)
[2022-06-27] MEDS ORDERED: PROPOFOL 10 MG/ML 20 ML VIAL IV ONE (11:00)
[2022-06-27] MEDS ORDERED: KETOROLAC 15 MG/ML 1 ML VIAL ONE (11:00)
[2022-06-27 11:33] VITALS: TEMP 97.6
[2022-06-27 12:07] VITALS: RESP 16
[2022-06-27 13:01] VITALS: BP 123/76; PULSE 81
--- NOTE | 2022-07-11 13:22 | P.OP ---
Date of Procedure: 06/28/22 Preoperative Diagnosis: 1.postmenopausal bleeding Postoperative Diagnosis: same Procedure(s) Performed: D&C hysteroscopy Anesthesia: IKE Surgeon: Estella Desai Estimated Blood Loss (ml): 2 IV fluids (ml): 300 Urine output (ml): 45 Pathology: other (Isis curettings) Condition: stable Disposition: PACU Operative Findings: Smooth contour of the uterus, mostly atrophic but there was a small amount of endometrial tissue the posterior aspect Description of Procedure: Patient is taken the operating room where general anesthesia was obtained without difficulty. She was prepped and draped in normal sterile fashion dorsal lithotomy position, legs placed in the PROTEIN LOUNGE cane stirrups. Bladder was drained of all urine. Weighted speculum placed in the vagina and the anterior lip the cervix was grasped with serial tooth tenaculum. The uterus sounded to 8 cm. The cervix was dilated to #8 Hegar dilator. Hysteroscopy was then performed. Both ostia were visualized and there was a smooth contour of the uterus. Most of the area looked pretty atrophic but there was some proliferative endometrium in the posterior aspect of the uterus. Sharp curet was then gently used to obtain endometrial curettings. All instruments removed from the vagina. Patient tolerated the procedure well, sponge and instrument counts were correct 2 and she was taken to recovery in stable condition.
== END 2022-06-27 13:15 | disposition home or self-care (01) ==
LOC: OR 09:12
PROVIDERS: ATTEND Obstetrics & Gynecology
DX: N84.0 Polyp of corpus uteri (principal); N95.0 Postmenopausal bleeding; J45.909 Unspecified asthma, uncomplicated; Z87.891 Personal history of nicotine dependence; J18.9 Pneumonia, unspecified organism; I10 Essential (primary) hypertension; E78.5 Hyperlipidemia, unspecified; Z91.048 Other nonmedicinal substance allergy status; M19.90 Unspecified osteoarthritis, unspecified site; H35.9 Unspecified retinal disorder; Z79.51 Long term (current) use of inhaled steroids; Z79.02 Long term (current) use of antithrombotics/antiplatelets; Z85.828 Personal history of other malignant neoplasm of skin; Z98.890 Other specified postprocedural states; Z87.81 Personal history of (healed) traumatic fracture; Z80.2 Family history of malignant neoplasm of other respiratory and intrathoracic organs; Z80.42 Family history of malignant neoplasm of prostate; Z84.89 Family history of other specified conditions; Z80.8 Family history of malignant neoplasm of other organs or systems; Z79.899 Other long term (current) drug therapy
CPT/HCPCS: 88305; 58558; J2250; J1100; J2405; J3010; J1885; J2704; J2001